=== PATIENT | male | born 1970 | race Two or more races ===

== ENCOUNTER 2018-06-20 21:37 | Emergency (ER) | payer MEDICAID ==
--- NOTE | 2018-06-20 23:58 | EDM.PDOC ---
ED HPI GENERAL MEDICAL PROBLEM - General Chief Complaint: Back Pain or Injury Stated Complaint: BACK HURTS NOT AN ACCIDENT Time Seen by Provider: 06/20/18 22:20 Source of Information: Reports: Patient History Limitations: Reports: No Limitations - History of Present Illness INITIAL COMMENTS - FREE TEXT/NARRATIVE: pt arrived with increased pain in the rt shoulder blade area and pain in the rt arm with considerable numbness. He had recently finished a medrol dospak. He also had flexeril. Onset: Other (pain definitely got alot worse today. ) Duration: Hour(s): Location: Reports: Neck, Other ( thoracic pine. ) Associated Symptoms: Reports: No Other Symptoms Left Middle Posterior Neck Pain Score (Numeric/FACES): 5 - Related Data Allergies Allergy/AdvReac Type Severity Reaction Status Date / Time hydrochlorothiazide Allergy Rash Verified 06/20/18 22:21 prochlorperazine Allergy Agitation Verified 06/20/18 22:21 [From Compazine] Home Meds: Home Meds Labetalol [Normodyne] 200 mg PO DAILY 06/20/18 [History] Lisinopril 40 mg PO DAILY 06/20/18 [History] Past Medical History HEENT History: Reports: Impaired Vision Cardiovascular History: Reports: Heart Murmur, Hypertension, Other (See Below) Other Cardiovascular History: mitral regurgitation Musculoskeletal History: Reports: Back Pain, Chronic, Neck Pain, Chronic, Other (See Below) Other Musculoskeletal History: cervical spondylosis, bulging discs plus. L5-S1 fusion Neurological History: Reports: Concussion Dermatologic History: Reports: Eczema - Past Surgical History GI Surgical History: Reports: Bariatric Procedure, Other (See Below) Other GI Surgeries/Procedures: lap band procedure 2008 Neurological Surgical History: Reports: C-Spine, Spinal Fusion Social & Family History - Tobacco Use Smoking Status *Q: Former Smoker Used Tobacco, but Quit: Yes Month/Year Tobacco Last Used: 20years - Caffeine Use Caffeine Use: Reports: Coffee - Recreational Drug Use Recreational Drug Use: No ED ROS GENERAL - Review of Systems Review Of Systems: See Below Constitutional: Reports: No Symptoms HEENT: Reports: No Symptoms Respiratory: Reports: No Symptoms Cardiovascular: Reports: No Symptoms Endocrine: Reports: No Symptoms GI/Abdominal: Reports: No Symptoms : Reports: No Symptoms Musculoskeletal: Reports: Neck Pain, Arm Pain, Other (pt has numbness in the rt arm and hand. He has just finished a medrol dospak, ) Skin: Reports: No Symptoms ED EXAM, UPPER BACK/NECK PAIN - Physical Exam Exam: See Below Text/Narrative:: pt arrived with pain in the rt [place] blade area. He has pain in his left arm and numbness in the left arm. The symptoms he is having would be at a c7 level. Exam Limited By: No Limitations General Appearance: Alert, Anxious, Moderate Distress Ears Exam: Normal TMs Nose Exam: Normal Inspection Throat/Mouth Exam: Normal Inspection Head Exam: Atraumatic Neck Exam: Non-Tender Cardiovascular/Respiratory: Regular Rate, Rhythm GI/Abdominal: Soft, Non-Tender Rectal (Males) Exam: Deferred Back Exam: Other (pt is tender by the rt shoulder blade area. He has numbness in his left hand and he has normal strength bilaterally) Extremities: Normal Inspection, Other (numbness and tingling in the rt arm. ) Neurologic: Alert, Oriented x 3 Psychiatric: Normal Affect Course - Vital Signs Last Recorded V/S: Last Vital Signs Temp 35.5 C 06/20/18 22:37 Pulse 88 06/20/18 22:37 Resp 16 06/20/18 22:37 BP 147/93 H 06/20/18 22:37 Pulse Ox 98 06/20/18 22:37 - Orders/Labs/Meds Meds: Medications Discontinued Medications Generic Name Dose Route Start Last Admin Trade Name Jimmy PRN Reason Stop Dose Admin Cyclobenzaprine HCl 10 mg 06/20/18 23:58 06/21/18 00:10 Flexeril PO 06/20/18 23:59 10 mg ONETIME ONE Administration Hydromorphone HCl 0.5 mg 06/20/18 23:58 06/21/18 00:10 Dilaudid IM 06/20/18 23:59 0.5 mg ONETIME ONE Administration - Re-Assessments/Exams Free Text/Narrative Re-Assessment/Exam: 06/21/18 01:40 pt had a thoracic spine whichdid nopt show any compression changes. He was given baclofen 10mg and dilaudid .5 and he really did have good relief. He is going to start his therapy program. Departure - Departure Time of Disposition: 01:26 Disposition: Home, Self-Care 01 Condition: Fair Clinical Impression: Cervical disc disease, Muscle spasm - Discharge Information Instructions: Muscle Cramps and Spasms, [id number], Spinal Fusion, Adult, Care After, [id number] Referrals: PCP,None [Primary Care Provider] - Forms: ED Department Discharge Care Plan Goals: moist warm packs, herbal cream for pain relieve, baclofen 10mg bid for muscle spasm, motrin 200-400 qid, percocet 5/325 q6h prn for severe pain #10, resume pt that he has used inthe past, Consider a MRI of the neck if pain does not settle down.
[2018-06-21] MEDS: HYDROmorphone 0.5 MG/0.5 ML Syringe IM ONE (00:10)
[2018-06-21] MEDS: Cyclobenzaprine 10 MG Tab PO ONE (00:10)
--- NOTE | 2018-06-21 00:44 | CRLCR ---
INDICATION: Right shoulder blade pain TECHNIQUE: Thoracic spine 3 view, 4 films COMPARISON: None FINDINGS: Bones: Alignment is normal. No fractures or significant bone lesions. Joints: Minimal anterior osteophytes without significant disc space narrowing. Soft tissues: Gastric lap band in the epigastric region in conventional position. IMPRESSION: Minimal degenerative disc disease thoracic spine. Dictated by Elton Crowell MD @ Jun 21 2018 12:42AM Signed by Dr. Elton Crowell @ Jun 21 2018 12:43AM
== END 2018-06-21 01:39 | disposition home or self-care (01) ==
LOC: JP.ED 21:37
DX: M50.90 Cervical disc disorder, unspecified, unspecified cervical region (principal); M62.838 Other muscle spasm; I10 Essential (primary) hypertension; Z88.8 Allergy status to other drugs, medicaments and biological substances; Z79.899 Other long term (current) drug therapy; Z87.891 Personal history of nicotine dependence
CPT/HCPCS: 72074; 96372; 99283; A9270; J1170

== ENCOUNTER 2018-06-27 17:06 | Emergency (ER) | payer MEDICAID ==
[2018-06-27] MEDS ORDERED: HYDROmorphone 1 MG/ML Syringe IVPUSH ONE (18:53)
[2018-06-27] MEDS ORDERED: Ondansetron 4 MG/2 ML SDV IVPUSH ONE (18:53)
[2018-06-27] MEDS ORDERED: Sodium Chloride 0.9% 10 ML Syringe FLUSH PRN (18:54)
[2018-06-27] MEDS ORDERED: Sodium Chloride 0.9% 1,000 ML IV SCH (19:00)
--- NOTE | 2018-06-27 19:01 | EDM.PDOC ---
ED HPI GENERAL MEDICAL PROBLEM - General Chief Complaint: Back Pain or Injury Stated Complaint: MEDICAL Time Seen by Provider: 06/27/18 18:57 Source of Information: Reports: Patient, RN Notes Reviewed History Limitations: Reports: No Limitations - History of Present Illness INITIAL COMMENTS - FREE TEXT/NARRATIVE: 47-year-old gentleman presents emergency department today complaint of neck pain , he states the neck pain has been ongoing for about 4 weeks does have numbness and tingling in his fingers describes digits 1-3 in the right hand digits 4 and 5 in the left hand pain is so intense he cannot turn his neck side to side I was evaluated emergency department approximately 8 days prior at which time image studies other than mild degenerative disease. He does have an appointment with her primary care provider next week to establish care Left Upper Back Pain Score (Numeric/FACES): 7 - Related Data Allergies Allergy/AdvReac Type Severity Reaction Status Date / Time hydrochlorothiazide Allergy Rash Verified 06/20/18 22:21 prochlorperazine Allergy Agitation Verified 06/20/18 22:21 [From Compazine] Home Meds: Home Meds Labetalol [Normodyne] 200 mg PO DAILY 06/20/18 [History] Lisinopril 40 mg PO DAILY 06/20/18 [History] Past Medical History HEENT History: Reports: Impaired Vision Cardiovascular History: Reports: Heart Murmur, Hypertension, Other (See Below) Other Cardiovascular History: mitral regurgitation Musculoskeletal History: Reports: Back Pain, Chronic, Neck Pain, Chronic, Other (See Below) Other Musculoskeletal History: cervical spondylosis, bulging discs plus. L5-S1 fusion Neurological History: Reports: Concussion Dermatologic History: Reports: Eczema - Infectious Disease History Infectious Disease History: Reports: Chicken Pox - Past Surgical History GI Surgical History: Reports: Bariatric Procedure, Other (See Below) Other GI Surgeries/Procedures: lap band procedure 2008 Neurological Surgical History: Reports: C-Spine, Spinal Fusion Social & Family History - Tobacco Use Smoking Status *Q: Former Smoker Used Tobacco, but Quit: Yes Month/Year Tobacco Last Used: 20 years ago - Caffeine Use Caffeine Use: Reports: Coffee ED ROS GENERAL - Review of Systems Review Of Systems: See Below Constitutional: Reports: No Symptoms HEENT: Reports: No Symptoms Respiratory: Reports: No Symptoms Cardiovascular: Reports: No Symptoms GI/Abdominal: Reports: No Symptoms : Reports: No Symptoms Musculoskeletal: Reports: Neck Pain Skin: Reports: No Symptoms Neurological: Reports: Numbness, Tingling ED EXAM, UPPER BACK/NECK PAIN - Physical Exam Exam: See Below Text/Narrative:: Examination of the neck he does describe tenderness C3 C4 region on the left side, there is no midline tenderness limited range of motion of neck secondary to pain otherwise supple no thyromegaly. Examination upper extremities on appreciate any abnormality does describe numbness and tingling digits 1 to on the right side digits 4 and 5 in the left side Tinel's is negative Exam Limited By: No Limitations General Appearance: Alert, WD/WN, No Apparent Distress Throat/Mouth Exam: Normal Inspection, Normal Lips, Normal Teeth, Normal Gums, Normal Oropharynx, Normal Voice, No Airway Compromise Head Exam: Atraumatic, Normocephalic Nexus Criteria: No: Posterior, Midline Cervical Tenderness, Evidence of Intoxication, Altered Level of Consciousness, Focal Neurological Deficit, Painful Distraction Injuries Cardiovascular/Respiratory: No Respiratory Distress Course - Vital Signs Last Recorded V/S: Last Vital Signs Temp 96.5 F 06/27/18 17:49 Pulse 83 06/27/18 17:49 Resp 17 06/27/18 17:49 BP 171/106 H 06/27/18 17:49 Pulse Ox 96 06/27/18 17:49 - Orders/Labs/Meds Orders: Active Orders 24 hr Category Date Time Status Peripheral IV Care [RC] . DIRECTED Care 06/27/18 18:56 Active Iopamidol [Isovue-370 (76%)] Med 06/27/18 19:15 Active 100 ml IV . DIRECTED Sodium Chloride 0.9% [Normal Saline] 1,000 ml Med 06/27/18 19:00 Active IV ASDIRECTED Sodium Chloride 0.9% [Normal Saline] 100 ml Med 06/27/18 19:15 Active IV ASDIRECTED Sodium Chloride 0.9% [Saline Flush] Med 06/27/18 18:54 Active 10 ml FLUSH ASDIRECTED PRN Peripheral IV Insertion Adult [OM.PC] Urgent Oth 06/27/18 18:53 Ordered Medication Orders Sodium Chloride (Normal Saline) 1,000 mls @ 500 mls/hr IV ASDIRECTED JEREMÍAS Last Admin: 06/27/18 19:31 Dose: 500 mls/hr Sodium Chloride (Normal Saline) 100 mls @ 3 mls/sec IV ASDIRECTED JEREMÍAS Last Admin: 06/27/18 19:25 Dose: 3 mls/sec Iopamidol (Isovue-370 (76%)) 100 ml IV . DIRECTED JEREMÍAS Last Admin: 06/27/18 19:25 Dose: 100 ml Sodium Chloride (Saline Flush) 10 ml FLUSH ASDIRECTED PRN PRN Reason: Keep Vein Open Meds: Medications Generic Name Dose Route Start Last Admin Trade Name Freq PRN Reason Stop Dose Admin Sodium Chloride 1,000 mls @ 500 mls/hr 06/27/18 19:00 06/27/18 19:31 Normal Saline IV 500 mls/hr ASDIRECTED JEREMÍAS Administration Sodium Chloride 100 mls @ 3 mls/sec 06/27/18 19:15 06/27/18 19:25 Normal Saline IV 3 mls/sec ASDIRECTED JEREMÍAS Administration Iopamidol 100 ml 06/27/18 19:15 06/27/18 19:25 Isovue-370 (76%) IV 100 ml . DIRECTED JEREMÍAS Administration Sodium Chloride 10 ml 06/27/18 18:54 Saline Flush FLUSH ASDIRECTED PRN Keep Vein Open Discontinued Medications Generic Name Dose Route Start Last Admin Trade Name Freq PRN Reason Stop Dose Admin Hydromorphone HCl 1 mg 06/27/18 18:53 06/27/18 19:05 Dilaudid IVPUSH 06/27/18 18:54 1 mg ONETIME ONE Administration Ondansetron HCl 4 mg 06/27/18 18:53 06/27/18 19:05 Zofran IVPUSH 06/27/18 18:54 4 mg ONETIME ONE Administration Departure - Departure Time of Disposition: 20:57 Disposition: Home, Self-Care 01 Condition: Fair Clinical Impression: Neck pain Vertebral artery stenosis Qualifiers: Laterality: bilateral Qualified Code(s): I65.03 - Occlusion and stenosis of bilateral vertebral arteries - Discharge Information Referrals: PCP,None [Primary Care Provider] - Forms: ED Department Discharge Additional Instructions: use Percocet as needed for pain control, use Flexeril as needed for muscle relaxant, please keep your follow-up appointment with primary care in 2 days, call return to the emergency department worsening of symptoms - My Orders Last 24 Hours: My Active Orders 06/27/18 18:53 Peripheral IV Insertion Adult [OM.PC] Urgent 06/27/18 18:54 Sodium Chloride 0.9% [Saline Flush] 10 ml FLUSH ASDIRECTED PRN 06/27/18 18:56 Peripheral IV Care [RC] . DIRECTED 06/27/18 19:00 Sodium Chloride 0.9% [Normal Saline] 1,000 ml IV ASDIRECTED 06/27/18 19:15 Iopamidol [Isovue-370 (76%)] 100 ml IV . DIRECTED Sodium Chloride 0.9% [Normal Saline] 100 ml IV ASDIRECTED - Assessment/Plan Last 24 Hours: My Active Orders 06/27/18 18:53 Peripheral IV Insertion Adult [OM.PC] Urgent 06/27/18 18:54 Sodium Chloride 0.9% [Saline Flush] 10 ml FLUSH ASDIRECTED PRN 06/27/18 18:56 Peripheral IV Care [RC] . DIRECTED 06/27/18 19:00 Sodium Chloride 0.9% [Normal Saline] 1,000 ml IV ASDIRECTED 06/27/18 19:15 Iopamidol [Isovue-370 (76%)] 100 ml IV . DIRECTED Sodium Chloride 0.9% [Normal Saline] 100 ml IV ASDIRECTED Plan: Assessment Acuity = acute Site and laterality = neck pain with numbness and tingling bilateral arms Etiology = unclear etiology Manifestations = [none Location of injury = Home Lab values = CT scan of the neck shows no bony abnormality however vertebral arteries do show a stenosis bilaterally Plan I did review CT scan results with him he has a follow-up appointment to establish care in 2 days prescription written for Percocet 5/325 one tablet by mouth every 6 hours when necessary total #15 and also Flexeril 1 tablet by mouth at bedtime as needed total #15 This note was dictated using [employer] voice recognition software please call with any questions on syntax or grammar.
[2018-06-27] MEDS ORDERED: Iopamidol 755 Mg/ML 100 ML Bottle IV SCH (19:15)
[2018-06-27] MEDS ORDERED: Sodium Chloride 0.9% 100 ML IV SCH (19:15)
--- NOTE | 2018-06-27 20:22 | CRLCT ---
Final Report: INDICATION: Neck pain, numbness. TECHNIQUE: High-resolution axial CT images were acquired through the neck following the rapid intravenous administration of iodinated contrast. Multiplanar MIPS of the cervical vasculature were performed as well. FINDINGS: There is minor atherosclerotic plaque at both carotid bifurcations. There is no significant stenosis. There is no evidence for dissection. The brachiocephalic vessels are not imaged directly off of the aortic arch. IMPRESSION: No evidence for significant stenosis or dissection of the carotid or vertebral arteries. Please note that all CT scans at this facility use dose modulation, iterative reconstruction, and/or weight-based dosing when appropriate to reduce radiation dose to as low as reasonably achievable. Dictated by Lennox Walters MD @ Jun 28 2018 8:10AM Signed by: Lennox Walters MD @06/28/2018 8:15:09 AM (Electronic Signature)INDICATION: Neck pain, numbness. TECHNIQUE: High-resolution axial CT images were acquired through the neck following the rapid intravenous administration of iodinated contrast. Multiplanar MIPS of the cervical vasculature were performed as well. FINDINGS: There is minor atherosclerotic plaque at both carotid bifurcations. There is no significant stenosis. There is no evidence for dissection. The brachiocephalic vessels are not imaged directly off of the aortic arch. IMPRESSION: No evidence for significant stenosis or dissection of the carotid or vertebral arteries. Please note that all CT scans at this facility use dose modulation, iterative reconstruction, and/or weight-based dosing when appropriate to reduce radiation dose to as low as reasonably achievable. Dictated by Lennox Walters MD @ Jun 28 2018 8:10AM Signed by Dr. Lennox Walters @ Jun 28 2018 8:15AM MTDD
== END 2018-06-27 21:35 | disposition home or self-care (01) ==
LOC: JP.ED 17:06
DX: I65.03 Occlusion and stenosis of bilateral vertebral arteries (principal); M54.2 Cervicalgia; Z87.891 Personal history of nicotine dependence; Z88.8 Allergy status to other drugs, medicaments and biological substances
CPT/HCPCS: 70498; 96361; 96374; 96375; 99283; J1170; J2405; J7030; Q9967

== ENCOUNTER 2018-07-09 19:13 | Emergency (ER) | payer MEDICAID ==
[2018-07-09] MEDS ORDERED: HYDROmorphone 1 MG/ML Syringe IM ONE (20:13)
--- NOTE | 2018-07-09 20:21 | EDM.PDOC ---
ED HPI GENERAL MEDICAL PROBLEM - General Chief Complaint: Back Pain or Injury Stated Complaint: BACK PAIN Time Seen by Provider: 07/09/18 19:55 Source of Information: Reports: Patient History Limitations: Reports: No Limitations - History of Present Illness INITIAL COMMENTS - FREE TEXT/NARRATIVE: 48-year-old male who has had several months of intermittent upper extremity paresthesias and neck pain which is being evaluated by his primary care provider including an MRI ordered on Wednesday of next week. He was doing well, exercising, and today had very little pain and was very active but developed bilateral numbness in his arms several hours ago and now has significant neck discomfort. The numbness of his right arm is his thumb and index finger, the left arm is the fourth and fifth fingers. He has no weakness. The pain is in the lower neck, especially the left paracervical area. Anti-inflammatories are not helping as well as they usually do. Onset: Unknown/Unsure Associated Symptoms: Reports: Other (upper extremity paresthesias). Denies: Confusion, Chest Pain, Cough, Diaphoresis, Headaches, Nausea/Vomiting, Shortness of Breath - Related Data Allergies Allergy/AdvReac Type Severity Reaction Status Date / Time hydrochlorothiazide Allergy Rash Verified 07/09/18 19:37 prochlorperazine Allergy Agitation Verified 07/09/18 19:37 [From Compazine] Home Meds: Home Meds Lisinopril 40 mg PO DAILY 06/20/18 [History] Carvedilol 07/09/18 [History] Past Medical History HEENT History: Reports: Impaired Vision Cardiovascular History: Reports: Heart Murmur, Hypertension, Other (See Below) Other Cardiovascular History: mitral regurgitation Musculoskeletal History: Reports: Back Pain, Chronic, Neck Pain, Chronic, Other (See Below) Other Musculoskeletal History: cervical spondylosis, bulging discs plus. L5-S1 fusion Neurological History: Reports: Concussion Dermatologic History: Reports: Eczema - Infectious Disease History Infectious Disease History: Reports: Chicken Pox - Past Surgical History GI Surgical History: Reports: Bariatric Procedure, Other (See Below) Other GI Surgeries/Procedures: lap band procedure 2008 Neurological Surgical History: Reports: C-Spine, Spinal Fusion Social & Family History - Tobacco Use Smoking Status *Q: Never Smoker - Caffeine Use Caffeine Use: Reports: Coffee ED ROS GENERAL - Review of Systems Review Of Systems: See Below Constitutional: Denies: Fever, Chills Respiratory: Denies: Shortness of Breath Musculoskeletal: Reports: Neck Pain Skin: Denies: Rash Neurological: Reports: Paresthesia Psychiatric: Reports: Anxiety ED EXAM, UPPER BACK/NECK PAIN - Physical Exam Exam: See Below Exam Limited By: No Limitations General Appearance: Alert, No Apparent Distress (looks uncomfortable but not acutely distressed) Eye Exam: Bilateral Eye: EOMI Head Exam: Atraumatic Neck Exam: Other (very tender to palpation along the lower para cervical muscles on the left, no significant spasm felt) Extremities: Other (strong grasp strength bilaterally, no asymmetry of strength at the shoulders or elbows) Neurologic: Oriented x 3, Sensory Deficit (some tactile deficit of the thumb and index finger on the right, the fifth finger on the left) Course - Vital Signs Last Recorded V/S: Last Vital Signs Temp 97.0 F 07/09/18 19:42 Pulse 106 H 07/09/18 19:42 Resp 14 07/09/18 19:42 BP 140/88 07/09/18 19:42 Pulse Ox 98 07/09/18 19:42 - Orders/Labs/Meds Meds: Medications Discontinued Medications Generic Name Dose Route Start Last Admin Trade Name Freq PRN Reason Stop Dose Admin Hydromorphone HCl 1 mg 07/09/18 20:13 07/09/18 20:19 Dilaudid IM 07/09/18 20:14 1 mg ONETIME ONE Administration - Re-Assessments/Exams Free Text/Narrative Re-Assessment/Exam: 07/09/18 20:17 I do not have the ability to move up his MRI, I did give him 1 mg of Dilaudid IM along with 10 hydrocodone to take along with his anti-inflammatories, encouraged him to be careful with any activity of the upper extremities or neck but he should be able to continue walking on his treadmill. If he is not improving satisfactorily should call [facility] and see if the open MRI is available before Wednesday. Departure - Departure Time of Disposition: 20:37 Disposition: Home, Self-Care 01 Clinical Impression: Neck pain Upper extremity neuropathy Qualifiers: Laterality: unspecified laterality Qualified Code(s): G56.90 - Unspecified mononeuropathy of unspecified upper limb - Discharge Information Instructions: Peripheral Neuropathy Referrals: Sabas Carlisle MD [Primary Care Provider] - Forms: ED Department Discharge Care Plan Goals: Rest tonight, increase activity as tolerated and continue anti-inflammatories for pain. Add stronger pain medication as prescribed if needed, and consider contacting [facility] if you feel you need to be evaluated sooner.
== END 2018-07-09 20:38 | disposition home or self-care (01) ==
LOC: JP.ED 19:13
DX: G56.93 Unspecified mononeuropathy of bilateral upper limbs (principal); M54.2 Cervicalgia; I10 Essential (primary) hypertension; Z88.8 Allergy status to other drugs, medicaments and biological substances; Z79.899 Other long term (current) drug therapy
CPT/HCPCS: 96372; 99283; J1170

== ENCOUNTER 2018-07-14 18:33 | Emergency (ER) | payer MEDICAID ==
--- NOTE | 2018-07-14 19:53 | EDM.PDOC ---
ED HPI GENERAL MEDICAL PROBLEM - General Chief Complaint: Neck Problem Stated Complaint: NECK/BACK PAIN, NUMBNESS RIGHT HAND Time Seen by Provider: 07/14/18 19:45 Source of Information: Reports: Patient, Family History Limitations: Reports: No Limitations - History of Present Illness INITIAL COMMENTS - FREE TEXT/NARRATIVE: 48-year-old male with known neck arthritis and radiculopathy had an MRI yesterday, and is having pain especially after physical therapy. He does not know the MRI results. 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: Baclofen, back brace Neck Pain Score (Numeric/FACES): 8 - Related Data Allergies Allergy/AdvReac Type Severity Reaction Status Date / Time hydrochlorothiazide Allergy Rash Verified 07/14/18 19:22 prochlorperazine Allergy Agitation Verified 07/14/18 19:22 [From Compazine] Home Meds: Home Meds Lisinopril 40 mg PO DAILY 06/20/18 [History] Carvedilol 12.5 mg PO BID 07/09/18 [History] Baclofen 10 mg PO TID 07/14/18 [History] Cbd Oil 8 drop TOP ASDIRECTED PRN 07/14/18 [History] Past Medical History HEENT History: Reports: Impaired Vision Cardiovascular History: Reports: Heart Murmur, Hypertension, Other (See Below) Other Cardiovascular History: mitral regurgitation Musculoskeletal History: Reports: Back Pain, Chronic, Neck Pain, Chronic, Other (See Below) Other Musculoskeletal History: cervical spondylosis, bulging discs plus. L5-S1 fusion. Recent MRI of neck 07/09/18 wears a back brace Neurological History: Reports: Concussion Dermatologic History: Reports: Eczema - Infectious Disease History Infectious Disease History: Reports: Chicken Pox - Past Surgical History GI Surgical History: Reports: Bariatric Procedure, Other (See Below) Other GI Surgeries/Procedures: lap band procedure 2008 Neurological Surgical History: Reports: C-Spine, Spinal Fusion, Other (See Below ) Other Neurological Surgeries/Procedures: Fusion L5-S1 Social & Family History - Tobacco Use Smoking Status *Q: Never Smoker Second Hand Smoke Exposure: No - Caffeine Use Caffeine Use: Reports: Coffee - Recreational Drug Use Recreational Drug Use: No ED ROS GENERAL - Review of Systems Review Of Systems: See Below Constitutional: Denies: Fever Respiratory: Denies: Shortness of Breath Cardiovascular: Denies: Chest Pain GI/Abdominal: Denies: Nausea, Vomiting Musculoskeletal: Reports: Neck Pain, Arm Pain Skin: Reports: No Symptoms Neurological: Denies: Paresthesia ED EXAM, UPPER BACK/NECK PAIN - Physical Exam Exam: See Below Exam Limited By: No Limitations General Appearance: Alert, No Apparent Distress, Other (Fairly comfortable if he lays still supine) Head Exam: Atraumatic Neck Exam: Painful Range of Motion, Paraspinous Muscle Tender (Especially in the right) Extremities: Normal Inspection Neurologic: No Motor/Sensory Deficits, Oriented x 3 Course - Vital Signs Last Recorded V/S: Last Vital Signs Temp 98.8 F 07/14/18 19:09 Pulse 96 07/14/18 19:09 Resp 14 07/14/18 19:09 BP 150/96 H 07/14/18 19:09 Pulse Ox 98 07/14/18 19:09 - Re-Assessments/Exams Free Text/Narrative Re-Assessment/Exam: 07/15/18 01:10 Reviewed his MRI, he has significant spinal stenosis of the cervical spine with arthritis changes. He was given 20 hydrocodone for extra pain control until he can discuss this with his neurosurgeon and neurologist. Departure - Departure Time of Disposition: 20:27 Disposition: Home, Self-Care 01 Clinical Impression: Degenerative cervical spinal stenosis, Neck pain, chronic - Discharge Information Instructions: Spinal Stenosis Referrals: Sabas Carlisle MD [Primary Care Provider] - Forms: ED Department Discharge Care Plan Goals: Continue your current treatment plan and medications, adding stronger pain medication as needed and directed.
== END 2018-07-14 20:28 | disposition home or self-care (01) ==
LOC: JP.ED 18:33
DX: M48.02 Spinal stenosis, cervical region (principal); I10 Essential (primary) hypertension; Z79.899 Other long term (current) drug therapy; Z88.8 Allergy status to other drugs, medicaments and biological substances
CPT/HCPCS: 99283

== ENCOUNTER 2018-07-25 17:29 | Emergency (ER) | payer MEDICAID ==
[2018-07-25] MEDS ORDERED: HYDROmorphone 1 MG/ML Syringe IM ONE (18:15)
--- NOTE | 2018-07-25 18:17 | EDM.PDOC ---
ED HPI GENERAL MEDICAL PROBLEM - General Chief Complaint: Back Pain or Injury Stated Complaint: BACK PAIN UPPER & LOWER Time Seen by Provider: 07/25/18 18:11 Source of Information: Reports: Patient, Family, RN Notes Reviewed History Limitations: Reports: No Limitations - History of Present Illness INITIAL COMMENTS - FREE TEXT/NARRATIVE: 48-year-old gentleman presents emergency department today complaint of low back pain left greater than right he does have a history of chronic back pain which he's been dealing with for several years. Has established neurosurgery is set up to have epidural injections on August 11 of this year. Denies any loss of bowel or bladder no numbness and tingling in the feet feels this exacerbation is typical for him Back Pain Score (Numeric/FACES): 7 - Related Data Allergies Allergy/AdvReac Type Severity Reaction Status Date / Time hydrochlorothiazide Allergy Rash Verified 07/14/18 19:22 prochlorperazine Allergy Agitation Verified 07/14/18 19:22 [From Compazine] Home Meds: Home Meds Lisinopril 40 mg PO DAILY 06/20/18 [History] Carvedilol 12.5 mg PO BID 07/09/18 [History] Baclofen 10 mg PO TID 07/14/18 [History] Cbd Oil 8 drop TOP ASDIRECTED PRN 07/14/18 [History] Past Medical History HEENT History: Reports: Impaired Vision Cardiovascular History: Reports: Heart Murmur, Hypertension, Other (See Below) Other Cardiovascular History: mitral regurgitation Musculoskeletal History: Reports: Back Pain, Chronic, Neck Pain, Chronic, Other (See Below) Other Musculoskeletal History: cervical spondylosis, bulging discs plus. L5-S1 fusion. Recent MRI of neck 07/09/18 wears a back brace Neurological History: Reports: Concussion Dermatologic History: Reports: Eczema - Infectious Disease History Infectious Disease History: Reports: Chicken Pox - Past Surgical History GI Surgical History: Reports: Bariatric Procedure, Other (See Below) Other GI Surgeries/Procedures: lap band procedure 2008 Neurological Surgical History: Reports: C-Spine, Spinal Fusion, Other (See Below ) Other Neurological Surgeries/Procedures: Fusion L5-S1 Social & Family History - Tobacco Use Smoking Status *Q: Never Smoker - Caffeine Use Caffeine Use: Reports: Coffee, Soda - Recreational Drug Use Recreational Drug Use: No ED ROS GENERAL - Review of Systems Review Of Systems: See Below Constitutional: Reports: No Symptoms Respiratory: Reports: No Symptoms Cardiovascular: Reports: No Symptoms GI/Abdominal: Reports: No Symptoms Musculoskeletal: Reports: Back Pain Neurological: Reports: No Symptoms ED EXAM,LOWER BACK PAIN/INJURY - Physical Exam Exam: See Below Exam Limited By: No Limitations General Appearance: Alert, WD/WN, No Apparent Distress Respiratory/Chest: No Respiratory Distress Back Exam: Normal Inspection, Decreased Range of Motion, Muscle Spasm, Paraspinal Tenderness. No: CVA Tenderness (R), CVA Tenderness (L), Vertebral Tenderness Neurological: No: Straight Leg Raise (L), Straight Leg Raise (R) Course - Vital Signs Last Recorded V/S: Last Vital Signs Temp 97.5 F 07/25/18 17:59 Pulse 94 07/25/18 17:59 Resp 16 07/25/18 17:59 BP 180/89 H 07/25/18 17:59 Pulse Ox 96 07/25/18 17:59 - Orders/Labs/Meds Meds: Medications Discontinued Medications Generic Name Dose Route Start Last Admin Trade Name Jimmy PRN Reason Stop Dose Admin Hydromorphone HCl 1 mg 07/25/18 18:15 07/25/18 18:40 Dilaudid IM 07/25/18 18:16 1 mg ONETIME ONE Administration Departure - Departure Time of Disposition: 19:19 Disposition: Home, Self-Care 01 Condition: Fair Clinical Impression: Chronic low back pain without sciatica Qualifiers: Back pain laterality: left Qualified Code(s): M54.5 - Low back pain; G89.29 - Other chronic pain - Discharge Information Instructions: Chronic Back Pain, [id number] Referrals: Sabas Carlisle MD [Primary Care Provider] - Forms: ED Department Discharge Additional Instructions: Continue to use ibuprofen as needed for baseline pain control, use Percocet as needed for breakthrough pain, please follow-up with your primary care provider in the next 2-3 days for reevaluation if not better call return to the emergency department worsening of symptoms - Assessment/Plan Plan: Assessment Acuity = acute on chronic Site and laterality = exacerbation of low back pain Etiology = unclear etiology Manifestations = none Location of injury = Home Lab values = none Plan Provided 1 mg Dilaudid IM then prescription written for Percocet 5/325 one tab by mouth every 6 hours when necessary total #6, he'll follow up with his primary care in next 2-3 days for reevaluation if not better This note was dictated using [employer] voice recognition software please call with any questions on syntax or grammar.
== END 2018-07-25 19:30 | disposition home or self-care (01) ==
LOC: JP.ED 17:29
DX: G89.29 Other chronic pain (principal); M54.5 Low back pain; I10 Essential (primary) hypertension; Z98.84 Bariatric surgery status; Z79.899 Other long term (current) drug therapy; Z88.8 Allergy status to other drugs, medicaments and biological substances
CPT/HCPCS: 96372; 99283; J1170

== ENCOUNTER 2018-08-28 13:44 | Emergency (ER) | payer MEDICAID ==
[2018-08-28] MEDS ORDERED: HYDROmorphone 1 MG/ML Syringe IM ONE (15:54)
[2018-08-28] MEDS ORDERED: Cyclobenzaprine 10 MG Tab PO ONE (15:55)
--- NOTE | 2018-08-28 15:55 | EDM.PDOC ---
ED HPI GENERAL MEDICAL PROBLEM - General Chief Complaint: Neck Problem Stated Complaint: NECK PAIN, RIGHT ARM NUMBNESS AND PAIN Time Seen by Provider: 08/28/18 14:38 Source of Information: Reports: Patient History Limitations: Reports: No Limitations - History of Present Illness INITIAL COMMENTS - FREE TEXT/NARRATIVE: 48 yo male with chronic neck pain presents to ER to with severe neck pain. He has traveled to [place] 2 days ago and helped his mother with some moving. exacerbation of neck pain. He had previously been doing very well continues with physical therapy. Denies recent traumatic event. Right Neck Pain Score (Numeric/FACES): 7 - Related Data Allergies Allergy/AdvReac Type Severity Reaction Status Date / Time hydrochlorothiazide Allergy Rash Verified 08/28/18 14:42 prochlorperazine Allergy Agitation Verified 08/28/18 14:42 [From Compazine] Home Meds: Home Meds Lisinopril 40 mg PO DAILY 06/20/18 [History] Carvedilol 12.5 mg PO BID 07/09/18 [History] Baclofen 5 mg PO BID 07/14/18 [History] Cbd Oil 8 drop TOP ASDIRECTED PRN 07/14/18 [History] Past Medical History HEENT History: Reports: Impaired Vision Cardiovascular History: Reports: Heart Murmur, Hypertension, Other (See Below) Other Cardiovascular History: mitral regurgitation Musculoskeletal History: Reports: Back Pain, Chronic, Neck Pain, Chronic, Other (See Below) Other Musculoskeletal History: cervical spondylosis, bulging discs plus. L5-S1 fusion. Recent MRI of neck 07/09/18 wears a back brace Neurological History: Reports: Concussion Dermatologic History: Reports: Eczema - Infectious Disease History Infectious Disease History: Reports: Chicken Pox - Past Surgical History GI Surgical History: Reports: Bariatric Procedure, Other (See Below) Other GI Surgeries/Procedures: lap band procedure 2008 Neurological Surgical History: Reports: C-Spine, Spinal Fusion, Other (See Below ) Other Neurological Surgeries/Procedures: Fusion L5-S1 Social & Family History - Tobacco Use Smoking Status *Q: Former Smoker Used Tobacco, but Quit: Yes Month/Year Tobacco Last Used: 20 years - Caffeine Use Caffeine Use: Reports: Coffee - Recreational Drug Use Recreational Drug Use: No ED ROS GENERAL - Review of Systems Review Of Systems: See Below Constitutional: Denies: Fever, Chills Respiratory: Denies: Shortness of Breath, Wheezing Cardiovascular: Denies: Chest Pain - Physical Exam Exam: See Below Exam Limited By: No Limitations General Appearance: Alert, WD/WN, Mild Distress Neck: Supple, Tender Lateral, Tender Midline. No: Lymphadenopathy (R), Lymphadenopathy (L) Respiratory/Chest: No Respiratory Distress, Lungs Clear, Normal Breath Sounds, No Accessory Muscle Use, Chest Non-Tender. No: Crackles, Rhonchi, Wheezing Cardiovascular: Regular Rate, Rhythm, Systolic Murmur Back Exam: Muscle Spasm, Paraspinal Tenderness Psychiatric: Normal Affect, Normal Mood Skin Exam: Warm, Dry, Intact Course - Vital Signs Last Recorded V/S: Last Vital Signs Temp 36.1 C 08/28/18 14:37 Pulse 80 08/28/18 14:37 Resp 16 08/28/18 14:37 BP 148/107 H 08/28/18 14:37 Pulse Ox 94 L 08/28/18 14:37 - Orders/Labs/Meds Meds: Medications Discontinued Medications Generic Name Dose Route Start Last Admin Trade Name Jimmy PRN Reason Stop Dose Admin Cyclobenzaprine HCl 10 mg 08/28/18 15:55 08/28/18 16:10 Flexeril PO 08/28/18 15:56 10 mg ONETIME ONE Administration Hydromorphone HCl 1 mg 08/28/18 15:54 08/28/18 16:10 Dilaudid IM 08/28/18 15:55 1 mg ONETIME ONE Administration - Re-Assessments/Exams Free Text/Narrative Re-Assessment/Exam: 08/28/18 16:51 pain improved but did not resolve after medication administration Departure - Departure Time of Disposition: 16:33 Disposition: Home, Self-Care 01 Condition: Good Clinical Impression: Cervicalgia - Discharge Information *PRESCRIPTION DRUG MONITORING PROGRAM REVIEWED*: Not Applicable *COPY OF PRESCRIPTION DRUG MONITORING REPORT IN PATIENT LONI: Not Applicable Instructions: Cervical Sprain, [id number] Referrals: Sabas Carlisle MD [Primary Care Provider] - Forms: ED Department Discharge Additional Instructions: Percocet as needed for severe pain alternate between ice and heat continue with physical therapy
== END 2018-08-28 17:08 | disposition home or self-care (01) ==
LOC: JP.ED 13:44
DX: M54.2 Cervicalgia (principal); I10 Essential (primary) hypertension; Z87.891 Personal history of nicotine dependence; Z79.899 Other long term (current) drug therapy; Z88.8 Allergy status to other drugs, medicaments and biological substances
CPT/HCPCS: 96372; 99283; A9270; J1170

== ENCOUNTER 2018-09-05 16:52 | Emergency (ER) | payer MEDICAID ==
[2018-09-05] MEDS ORDERED: Ketorolac 60 MG/2 ML SDV IM ONE (18:37)
[2018-09-05] MEDS ORDERED: Acetaminophen/oxyCODONE 325-5 MG Tab PO ONE (18:38)
--- NOTE | 2018-09-05 18:40 | EDM.PDOC ---
ED HPI GENERAL MEDICAL PROBLEM - General Chief Complaint: Neck Problem Stated Complaint: BACK HURTS NOT AN ACCIDENT Time Seen by Provider: 09/05/18 18:40 Source of Information: Reports: Patient History Limitations: Reports: No Limitations - History of Present Illness INITIAL COMMENTS - FREE TEXT/NARRATIVE: pt arrived with increased pain in the post cervical area and numbness in all limbs . he had a Mri in July which was done in [place] that showed a multi level disc problem. Onset: Gradual, Other (pt worked on a retaining wall and did some shoveling today. He also did some gardening. He was doing ok but he then developed numbness in the extremities-- all of them. Normally when he gets numbness it is one the left. ) Duration: Hour(s): Location: Reports: Neck Associated Symptoms: Reports: No Other Symptoms Neck Pain Score (Numeric/FACES): 8 - Related Data Allergies Allergy/AdvReac Type Severity Reaction Status Date / Time hydrochlorothiazide Allergy Rash Verified 09/05/18 17:43 prochlorperazine Allergy Agitation Verified 09/05/18 17:43 [From Compazine] Home Meds: Home Meds Lisinopril 40 mg PO DAILY 06/20/18 [History] Carvedilol 12.5 mg PO BID 07/09/18 [History] Baclofen 2.5 mg PO BID 07/14/18 [History] Cbd Oil 8 drop TOP ASDIRECTED PRN 07/14/18 [History] Past Medical History HEENT History: Reports: Impaired Vision Cardiovascular History: Reports: Heart Murmur, Hypertension, Other (See Below) Other Cardiovascular History: mitral regurgitation Musculoskeletal History: Reports: Back Pain, Chronic, Neck Pain, Chronic, Other (See Below) Other Musculoskeletal History: cervical spondylosis, bulging discs plus. L5-S1 fusion. Recent MRI of neck 07/09/18 wears a back brace Neurological History: Reports: Concussion Dermatologic History: Reports: Eczema - Infectious Disease History Infectious Disease History: Reports: Chicken Pox - Past Surgical History GI Surgical History: Reports: Bariatric Procedure, Other (See Below) Other GI Surgeries/Procedures: lap band procedure 2008 Neurological Surgical History: Reports: C-Spine, Spinal Fusion, Other (See Below ) Other Neurological Surgeries/Procedures: Fusion L5-S1 Social & Family History - Tobacco Use Smoking Status *Q: Never Smoker Second Hand Smoke Exposure: No - Caffeine Use Caffeine Use: Reports: Coffee - Recreational Drug Use Recreational Drug Use: No ED ROS GENERAL - Review of Systems Review Of Systems: See Below Constitutional: Reports: No Symptoms HEENT: Reports: No Symptoms Respiratory: Reports: No Symptoms Cardiovascular: Reports: No Symptoms Endocrine: Reports: No Symptoms GI/Abdominal: Reports: No Symptoms : Reports: No Symptoms Musculoskeletal: Reports: Other (pain in the post cervical area. ) Skin: Reports: No Symptoms Neurological: Reports: Other (numbness in all 4 limbs. ) Psychiatric: Reports: No Symptoms ED EXAM, UPPER BACK/NECK PAIN - Physical Exam Exam: See Below Text/Narrative:: pt arrived with increased pain in the post cervical area with numbness in all extremities. he had over worked today and it was after that that he began to have the numbness and the pain increase. Exam Limited By: No Limitations General Appearance: Alert, Severe Distress, Other (pupils equal and reactive. ) Ears Exam: Normal TMs Nose Exam: Normal Inspection Throat/Mouth Exam: Normal Inspection Head Exam: Atraumatic Neck Exam: Other (pt has alot of oost tightness and tenderness over c6-c7. ) Cardiovascular/Respiratory: Regular Rate, Rhythm GI/Abdominal: Soft, Non-Tender Course - Vital Signs Last Recorded V/S: Last Vital Signs Temp 36.4 C 09/05/18 17:43 Pulse 95 09/05/18 19:35 Resp 20 09/05/18 19:35 BP 155/93 H 09/05/18 19:35 Pulse Ox 98 09/05/18 19:35 - Orders/Labs/Meds Meds: Medications Discontinued Medications Generic Name Dose Route Start Last Admin Trade Name Jimmy PRN Reason Stop Dose Admin Hydromorphone HCl 0.5 mg 09/05/18 19:18 09/05/18 19:32 Dilaudid IM 09/05/18 19:19 0.5 mg ONETIME ONE Administration Ketorolac Tromethamine 60 mg 09/05/18 18:37 09/05/18 18:52 Toradol IM 09/05/18 18:38 60 mg ONETIME ONE Administration Oxycodone/Acetaminophen 1 tab 09/05/18 18:38 09/05/18 18:50 Percocet 325-5 Mg PO 09/05/18 18:39 1 tab ONETIME ONE Administration - Re-Assessments/Exams Free Text/Narrative Re-Assessment/Exam: 09/05/18 20:09 pt was given dilaudid .5, torodol 60mg im, and percocet 5/325. At this point he is quite comfortable. He works with a therapist and does therapy at home. Departure - Departure Time of Disposition: 19:59 Disposition: Home, Self-Care 01 Condition: Fair Clinical Impression: Cervical disc disease, Numbness and tingling of both legs, Numbness and tingling in both hands - Discharge Information Referrals: Sabas Carlisle MD [Primary Care Provider] - Forms: ED Department Discharge Care Plan Goals: avoid heavy lifting, keep appt with Dr Rodriguez on the , Resume baclofen 10mg tid, medrol dospak, norco 5/325 q6h prn for pain
[2018-09-05] MEDS ORDERED: HYDROmorphone 0.5 MG/0.5 ML Syringe IM ONE (19:18)
== END 2018-09-05 20:31 | disposition home or self-care (01) ==
LOC: JP.ED 16:52
DX: M50.30 Other cervical disc degeneration, unspecified cervical region (principal); R20.0 Anesthesia of skin; I10 Essential (primary) hypertension; Z79.899 Other long term (current) drug therapy; Z88.8 Allergy status to other drugs, medicaments and biological substances
CPT/HCPCS: 96372; 99283; A9270; J1170; J1885

== ENCOUNTER 2018-10-03 19:24 | Emergency (ER) | payer MEDICAID ==
[2018-10-03] MEDS ORDERED: HYDROmorphone 1 MG/ML Syringe IM ONE (19:54)
--- NOTE | 2018-10-03 20:02 | EDM.PDOC ---
ED HPI GENERAL MEDICAL PROBLEM - General Chief Complaint: Neck Problem Stated Complaint: NECK HURTS CHRONIC Time Seen by Provider: 10/03/18 19:45 Source of Information: Reports: Patient, Old Records History Limitations: Reports: No Limitations - History of Present Illness INITIAL COMMENTS - FREE TEXT/NARRATIVE: 48 yo male here with an exacerbation of his chronic neck pain. Attributes this to doing quite a bit of yard work around his house today due to the fact that the weather is cooler with lower humidity. Has some numbness to the L arm. Has been going to PT in [place] for his neck. There has been discussion about referring him to a neck surgeon, he has [facility]. Has been to the ER before for this. 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 Onset: Today Onset Date: 10/03/18 Onset Time: 17:00 Duration: Hour(s):, Constant Location: Reports: Neck Quality: Reports: Other (tightness) Severity: Moderate Improves with: Reports: Rest Worsens with: Reports: Movement Context: Reports: Other (See HPI) Associated Symptoms: Reports: No Other Symptoms Treatments CONTROL INSPECTOR: Reports: NSAIDS (ibuprofen) neck Pain Score (Numeric/FACES): 7 - Related Data Allergies Allergy/AdvReac Type Severity Reaction Status Date / Time hydrochlorothiazide Allergy Rash Verified 10/03/18 19:35 prochlorperazine Allergy Agitation Verified 10/03/18 19:35 [From Compazine] Home Meds: Home Meds Lisinopril 40 mg PO DAILY 06/20/18 [History] Carvedilol 12.5 mg PO BID 07/09/18 [History] Cbd Oil 8 drop TOP ASDIRECTED PRN 07/14/18 [History] Acetaminophen [Tylenol] 650 mg PO BID 10/03/18 [History] Ibuprofen [Motrin] 400 mg PO TID 10/03/18 [History] Past Medical History HEENT History: Reports: Impaired Vision Cardiovascular History: Reports: Heart Murmur, Hypertension, Other (See Below) Other Cardiovascular History: mitral regurgitation Musculoskeletal History: Reports: Back Pain, Chronic, Neck Pain, Chronic, Other (See Below) Other Musculoskeletal History: cervical spondylosis, bulging discs plus. L5-S1 fusion. Recent MRI of neck 07/09/18 wears a back brace Neurological History: Reports: Concussion Dermatologic History: Reports: Eczema - Infectious Disease History Infectious Disease History: Reports: Chicken Pox - Past Surgical History GI Surgical History: Reports: Bariatric Procedure, Other (See Below) Other GI Surgeries/Procedures: lap band procedure 2008 Neurological Surgical History: Reports: C-Spine, Spinal Fusion, Other (See Below ) Other Neurological Surgeries/Procedures: Fusion L5-S1 Social & Family History - Tobacco Use Smoking Status *Q: Never Smoker - Caffeine Use Caffeine Use: Reports: Coffee - Recreational Drug Use Recreational Drug Use: No ED ROS GENERAL - Review of Systems Review Of Systems: See Below Constitutional: Reports: No Symptoms HEENT: Reports: No Symptoms Respiratory: Reports: No Symptoms Cardiovascular: Reports: No Symptoms GI/Abdominal: Reports: No Symptoms : Reports: No Symptoms Musculoskeletal: Reports: No Symptoms Skin: Reports: No Symptoms Neurological: Reports: Numbness (intermittent L hand) Psychiatric: Reports: No Symptoms ED EXAM, UPPER BACK/NECK PAIN - Physical Exam Exam: See Below Exam Limited By: No Limitations General Appearance: Alert, WD/WN, No Apparent Distress, Obese Eye Exam: Bilateral Eye: Normal Inspection Ears Exam: Normal External Exam, Normal Canal, Hearing Grossly Normal Nose Exam: Normal Inspection, No Blood Throat/Mouth Exam: Normal Inspection, Normal Lips, Normal Oropharynx, Normal Voice, No Airway Compromise Head Exam: Atraumatic, Normocephalic Neck Exam: Limited Range of Motion, Muscle Spasm, Painful Range of Motion, Stiff Neck, Tenderness (neck and upper back L>R) Extremities: Normal Inspection, Normal Range of Motion, Non-Tender, No Pedal Edema 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 II-XII nml As Tested, No Motor/Sensory Deficits, Alert, Normal Mood/Affect, Oriented x 3 Psychiatric: Normal Affect, Normal Mood Skin Exam: Normal Color, Warm/Dry Course - Vital Signs Last Recorded V/S: Last Vital Signs Temp 37.2 C 10/03/18 19:37 Pulse 97 10/03/18 19:37 Resp 18 10/03/18 19:37 BP 187/121 H 10/03/18 19:37 Pulse Ox 96 10/03/18 19:37 - Orders/Labs/Meds Meds: Medications Discontinued Medications Generic Name Dose Route Start Last Admin Trade Name Freq PRN Reason Stop Dose Admin Hydromorphone HCl 1 mg 10/03/18 19:54 Dilaudid IM 10/03/18 19:55 ONETIME ONE Departure - Departure Time of Disposition: 20:15 Disposition: Home, Self-Care 01 Condition: Fair Clinical Impression: Neck pain, chronic - Discharge Information *PRESCRIPTION DRUG MONITORING PROGRAM REVIEWED*: No *COPY OF PRESCRIPTION DRUG MONITORING REPORT IN PATIENT LONI: No Referrals: Sabas Carlisle MD [Primary Care Provider] - Additional Instructions: F/U with your provider DEJA to further address your neck pain issues/needs. No driving tonight. May continue your ibuprofen, add Flexeril and Percocet as directed for added relief.
== END 2018-10-03 20:38 | disposition home or self-care (01) ==
LOC: JP.ED 19:24
DX: G89.29 Other chronic pain (principal); M54.2 Cervicalgia; I10 Essential (primary) hypertension; Z88.8 Allergy status to other drugs, medicaments and biological substances; Z79.899 Other long term (current) drug therapy
CPT/HCPCS: 96372; 99283; J1170

== ENCOUNTER 2018-10-10 20:14 | Emergency (ER) | payer MEDICAID ==
[2018-10-10] MEDS ORDERED: HYDROmorphone 1 MG/ML Syringe IM ONE (20:49)
--- NOTE | 2018-10-10 20:55 | EDM.PDOC ---
ED HPI GENERAL MEDICAL PROBLEM - General Chief Complaint: Neck Problem Stated Complaint: NECK PAIN Time Seen by Provider: 10/10/18 20:21 Source of Information: Reports: Patient History Limitations: Reports: No Limitations - History of Present Illness INITIAL COMMENTS - FREE TEXT/NARRATIVE: Chronic pain States he "over did it", having severe pain; no new symptoms. Has the tingling in the left hand, 4th and 5th, and right hand, first and second. Limited ROM to his neck; sitting in a stiff position. No loss of bowel or bladder control He is doing PT which usually helps Review of PATROL AGENT shows and increase in the number or scripts for pain medicine. Last fill 10/03 for 10 tabs of Oxycodone. Has a total of 7 different fills since June. Discussed with him that he needs to FU with PCP because chronic pain isn't a ER issue and he needs to have a plan for when he has breakthrough pain. 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 Onset: Gradual Location: Reports: Neck Quality: Reports: Ache, Sharp, Stabbing Severity: Severe Improves with: Reports: None Worsens with: Reports: None Neck Pain Score (Numeric/FACES): 7 - Related Data Allergies Allergy/AdvReac Type Severity Reaction Status Date / Time hydrochlorothiazide Allergy Rash Verified 10/10/18 20:40 prochlorperazine Allergy Agitation Verified 10/10/18 20:40 [From Compazine] Home Meds: Home Meds Lisinopril 40 mg PO DAILY 06/20/18 [History] Carvedilol 12.5 mg PO BID 07/09/18 [History] Cbd Oil 8 drop TOP ASDIRECTED PRN 07/14/18 [History] Acetaminophen [Tylenol] 650 mg PO BID 10/03/18 [History] Ibuprofen [Motrin] 400 mg PO TID 10/03/18 [History] Cyclobenzaprine [Flexeril] 10 mg PO BEDTIME #15 tab 10/10/18 [Rx] Past Medical History HEENT History: Reports: Impaired Vision Cardiovascular History: Reports: Heart Murmur, Hypertension, Other (See Below) Other Cardiovascular History: mitral regurgitation Musculoskeletal History: Reports: Back Pain, Chronic, Neck Pain, Chronic, Other (See Below) Other Musculoskeletal History: cervical spondylosis, bulging discs plus. L5-S1 fusion. Recent MRI of neck 07/09/18 wears a back brace Neurological History: Reports: Concussion Dermatologic History: Reports: Eczema - Infectious Disease History Infectious Disease History: Reports: Chicken Pox - Past Surgical History GI Surgical History: Reports: Bariatric Procedure, Other (See Below) Other GI Surgeries/Procedures: lap band procedure 2008 Neurological Surgical History: Reports: C-Spine, Spinal Fusion, Other (See Below ) Other Neurological Surgeries/Procedures: Fusion L5-S1 Social & Family History - Tobacco Use Smoking Status *Q: Never Smoker - Caffeine Use Caffeine Use: Reports: Coffee - Recreational Drug Use Recreational Drug Use: No ED ROS GENERAL - Review of Systems Review Of Systems: See Below Constitutional: Reports: No Symptoms HEENT: Reports: No Symptoms Respiratory: Reports: No Symptoms Cardiovascular: Reports: No Symptoms Endocrine: Reports: No Symptoms GI/Abdominal: Reports: No Symptoms Musculoskeletal: Reports: Neck Pain Skin: Reports: No Symptoms Neurological: Reports: Numbness (to hands/fingers), Tingling (left hand, 4th and 5th finger, right hand, 1st and second finger.), Weakness (upper extremities ) Psychiatric: Reports: No Symptoms ED EXAM, GENERAL - Physical Exam Exam: See Below Exam Limited By: No Limitations General Appearance: Alert, WD/WN, No Apparent Distress Throat/Mouth: Normal Inspection, Normal Oropharynx Head: Atraumatic, Normocephalic Neck: Normal Inspection, Supple, Tender Lateral, Tender Midline, Other ( decreased rom, pain with movement to either side.) Respiratory/Chest: No Respiratory Distress Cardiovascular: Regular Rate, Rhythm Extremities: Normal Inspection Neurological: Alert, Oriented, CN II-XII Intact, Normal Cognition, Normal Gait Psychiatric: Normal Affect, Normal Mood Skin Exam: Warm, Dry, Intact Course - Vital Signs Last Recorded V/S: Last Vital Signs Temp 97.6 F 10/10/18 20:39 Pulse 83 10/10/18 20:39 Resp 16 10/10/18 20:39 BP 191/128 H 10/10/18 20:39 Pulse Ox 96 10/10/18 20:39 - Orders/Labs/Meds Meds: Medications Discontinued Medications Generic Name Dose Route Start Last Admin Trade Name Freq PRN Reason Stop Dose Admin Hydromorphone HCl 1 mg 10/10/18 20:49 10/10/18 21:00 Dilaudid IM 10/10/18 20:50 1 mg ONETIME ONE Administration - Re-Assessments/Exams Free Text/Narrative Re-Assessment/Exam: 10/10/18 21:06 His blood pressure is quite elevated however he is sitting erect on a table with his left hand wedging him up, in a stiff position. Recheck of blood pressure in a relaxed position is much better at 156/99 10/10/18 21:16 Departure - Departure Time of Disposition: 21:19 Disposition: Home, Self-Care 01 Condition: Fair Clinical Impression: Chronic neck pain - Discharge Information *PRESCRIPTION DRUG MONITORING PROGRAM REVIEWED*: Yes *COPY OF PRESCRIPTION DRUG MONITORING REPORT IN PATIENT LONI: No Prescriptions: Cyclobenzaprine [Flexeril] 10 mg PO BEDTIME #15 tab Instructions: Pain Medicine Instructions Referrals: PCP,None [Primary Care Provider] - Forms: ED Department Discharge Additional Instructions: Please be sure to follow up with your doctor Do not drink or drive while taking pain medications Follow up with your doctor Call with questions Return with worsening of symptoms. - Problem List & Annotations (1) Neck pain, chronic SNOMED Code(s): 8598845630932 Code(s): M54.2 - CERVICALGIA; G89.29 - OTHER CHRONIC PAIN Status: Chronic Priority: Low Current Visit: Yes
== END 2018-10-10 21:37 | disposition home or self-care (01) ==
LOC: JP.ED 20:14
DX: G89.29 Other chronic pain (principal); M54.2 Cervicalgia; I10 Essential (primary) hypertension; Z88.8 Allergy status to other drugs, medicaments and biological substances; Z79.899 Other long term (current) drug therapy
CPT/HCPCS: 96372; 99283; J1170

== ENCOUNTER 2018-11-24 17:32 | Emergency (ER) | payer MEDICAID ==
[2018-11-24] MEDS ORDERED: HYDROmorphone 1 MG/ML Syringe IM ONE (19:49)
--- NOTE | 2018-11-24 20:02 | EDM.PDOC ---
ED HPI GENERAL MEDICAL PROBLEM - General Chief Complaint: Back Pain or Injury Stated Complaint: UPPER/LOW BACK PAIN, NECK PAIN Time Seen by Provider: 11/24/18 19:45 Source of Information: Reports: Patient History Limitations: Reports: No Limitations - History of Present Illness INITIAL COMMENTS - FREE TEXT/NARRATIVE: 48-year-old male with chronic neck problems, has been improving with physical therapy but strained his neck lifting a box and now has intense pain again. He does get a flare similar to this every month or so. He is discussing possible treatments with his primary providers. Onset: Sudden Duration: Day(s): (Increased pain for the last 2 days) Associated Symptoms: Reports: Other (Occasional paresthesias in his left arm, none currently) - Related Data Allergies Allergy/AdvReac Type Severity Reaction Status Date / Time hydrochlorothiazide Allergy Rash Verified 11/24/18 19:18 prochlorperazine Allergy Agitation Verified 11/24/18 19:18 [From Compazine] Home Meds: Home Meds Lisinopril 40 mg PO DAILY 06/20/18 [History] Carvedilol 12.5 mg PO BID 07/09/18 [History] Cbd Oil 8 drop TOP ASDIRECTED PRN 07/14/18 [History] Acetaminophen [Tylenol] 650 mg PO BID 10/03/18 [History] Ibuprofen [Motrin] 400 mg PO TID 10/03/18 [History] Cholecalciferol (Vitamin D3) [Vitamin D3] 11/24/18 [History] Testosterone [Androderm 4 MG/Day] 11/24/18 [History] Past Medical History HEENT History: Reports: Impaired Vision Cardiovascular History: Reports: Heart Murmur, Hypertension, Other (See Below) Other Cardiovascular History: mitral regurgitation Musculoskeletal History: Reports: Back Pain, Chronic, Neck Pain, Chronic, Other (See Below) Other Musculoskeletal History: cervical spondylosis, bulging discs plus. L5-S1 fusion. Recent MRI of neck 07/09/18 wears a back brace Neurological History: Reports: Concussion Dermatologic History: Reports: Eczema - Infectious Disease History Infectious Disease History: Reports: Chicken Pox - Past Surgical History GI Surgical History: Reports: Bariatric Procedure, Other (See Below) Other GI Surgeries/Procedures: lap band procedure 2008 Neurological Surgical History: Reports: C-Spine, Spinal Fusion, Other (See Below ) Other Neurological Surgeries/Procedures: Fusion L5-S1 Social & Family History - Tobacco Use Smoking Status *Q: Never Smoker - Caffeine Use Caffeine Use: Reports: Coffee ED ROS GENERAL - Review of Systems Review Of Systems: See Below Constitutional: Denies: Fever, Chills HEENT: Denies: Vision Change Respiratory: Denies: Shortness of Breath Cardiovascular: Denies: Chest Pain GI/Abdominal: Denies: Abdominal Pain, Nausea, Vomiting Skin: Reports: No Symptoms Neurological: Reports: Paresthesia (Intermittent paresthesias of the left hand) Psychiatric: Reports: No Symptoms ED EXAM, UPPER BACK/NECK PAIN - Physical Exam Exam: See Below Exam Limited By: No Limitations General Appearance: Alert, No Apparent Distress (Looks uncomfortable but not distressed) Head Exam: Atraumatic Neck Exam: Other (Patient is holding his neck stiffly to avoid range of motion. There is increased discomfort with rotation and palpation of the paracervical muscles. 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 He has not had any in the last month. He was given 10 oxycodone and 15 Flexeril for symptom control over the next 3-5 days along with 1 mg IM of Dilaudid. He is going to sleep and rest for the next few days and increase activity as tolerated, rechecking with primary care next week if not improving satisfactorily. Departure - Departure Time of Disposition: 20:00 Disposition: Home, Self-Care 01 Condition: Good Clinical Impression: Neck pain - Discharge Information Instructions: Cervical Sprain, [id number] Referrals: Sabas Carlisle MD [Primary Care Provider] - Forms: ED Department Discharge Care Plan Goals: Rest the next 1-2 days and take medications as directed. Recheck with your primary provider next week if not improving satisfactorily.
== END 2018-11-24 20:00 | disposition home or self-care (01) ==
LOC: JP.ED 17:32
DX: M54.2 Cervicalgia (principal); I10 Essential (primary) hypertension; Z79.899 Other long term (current) drug therapy; Z88.8 Allergy status to other drugs, medicaments and biological substances
CPT/HCPCS: 96372; 99283; J1170

== ENCOUNTER 2018-12-16 18:35 | Emergency (ER) | payer MEDICAID ==
[2018-12-16] MEDS ORDERED: Acetaminophen/oxyCODONE 325-5 MG Tab PO ONE (20:59)
[2018-12-16] MEDS ORDERED: Cyclobenzaprine 10 MG Tab PO ONE (20:59)
[2018-12-16] MEDS ORDERED: Ketorolac 60 MG/2 ML SDV IM ONE (20:59)
--- NOTE | 2018-12-16 21:26 | EDM.PDOC ---
ED HPI GENERAL MEDICAL PROBLEM - General Chief Complaint: General Stated Complaint: NECK PAIN Time Seen by Provider: 12/16/18 20:00 Source of Information: Reports: Patient History Limitations: Reports: No Limitations - History of Present Illness INITIAL COMMENTS - FREE TEXT/NARRATIVE: 48 yo male presents to the ER with flare of his chronic cervical pain. Pt has been participating in physical therapy. earlier this week pt was very active getting his house ready for winter. increase in pain and spasm in the left side of his left and the right side of his upper back. denies new injury. the pain is radiating down left arm Left Neck Pain Score (Numeric/FACES): 7 - Related Data Allergies Allergy/AdvReac Type Severity Reaction Status Date / Time hydrochlorothiazide Allergy Rash Verified 11/24/18 19:18 prochlorperazine Allergy Agitation Verified 11/24/18 19:18 [From Compazine] Home Meds: Home Meds Lisinopril 40 mg PO DAILY 06/20/18 [History] Carvedilol 12.5 mg PO BID 07/09/18 [History] Cbd Oil 8 drop TOP ASDIRECTED PRN 07/14/18 [History] Acetaminophen [Tylenol] 650 mg PO BID PRN 10/03/18 [History] Ibuprofen [Motrin] 400 mg PO TID PRN 10/03/18 [History] Cholecalciferol (Vitamin D3) [Vitamin D3] 5,000 units PO DAILY 11/24/18 [History ] Testosterone [Androderm 4 MG/Day] 4 mg TOP DAILY 11/24/18 [History] Past Medical History HEENT History: Reports: Impaired Vision Cardiovascular History: Reports: Heart Murmur, Hypertension, Other (See Below) Other Cardiovascular History: mitral regurgitation Musculoskeletal History: Reports: Back Pain, Chronic, Neck Pain, Chronic, Other (See Below) Other Musculoskeletal History: cervical spondylosis, bulging discs plus. L5-S1 fusion. Recent MRI of neck 07/09/18 wears a back brace Neurological History: Reports: Concussion Dermatologic History: Reports: Eczema - Infectious Disease History Infectious Disease History: Reports: Chicken Pox - Past Surgical History GI Surgical History: Reports: Bariatric Procedure, Other (See Below) Other GI Surgeries/Procedures: lap band procedure 2008 Neurological Surgical History: Reports: C-Spine, Spinal Fusion, Other (See Below ) Other Neurological Surgeries/Procedures: Fusion L5-S1 Social & Family History - Tobacco Use Smoking Status *Q: Former Smoker Used Tobacco, but Quit: Yes Month/Year Tobacco Last Used: 2000 - Caffeine Use Caffeine Use: Reports: Coffee - Recreational Drug Use Recreational Drug Use: No ED ROS GENERAL - Review of Systems Review Of Systems: See Below Constitutional: Denies: Fever, Fatigue Respiratory: Denies: Shortness of Breath, Wheezing Cardiovascular: Denies: Chest Pain ED EXAM, GENERAL - Physical Exam Exam: See Below Exam Limited By: No Limitations General Appearance: Alert, WD/WN, Mild Distress Head: Atraumatic, Normocephalic Neck: Supple, Tender Lateral, Other (paraspinal bilateral muscle tenderness posterior, ROM limited by pain). No: Lymphadenopathy (R), Lymphadenopathy (L), Tender Midline Respiratory/Chest: No Respiratory Distress, Lungs Clear, Normal Breath Sounds, No Accessory Muscle Use, Chest Non-Tender. No: Crackles, Rhonchi, Wheezing Cardiovascular: Normal Peripheral Pulses, Regular Rate, Rhythm GI/Abdominal: Soft, Non-Tender Course - Vital Signs Last Recorded V/S: Last Vital Signs Temp 36.2 C 12/16/18 19:59 Pulse 91 12/16/18 19:59 Resp 16 12/16/18 19:59 BP 153/111 H 12/16/18 20:05 Pulse Ox 96 12/16/18 19:59 - Orders/Labs/Meds Meds: Medications Discontinued Medications Generic Name Dose Route Start Last Admin Trade Name Freq PRN Reason Stop Dose Admin Cyclobenzaprine HCl 10 mg 12/16/18 20:59 12/16/18 21:06 Flexeril PO 12/16/18 21:00 10 mg ONETIME ONE Administration Hydromorphone HCl 1 mg 12/16/18 21:42 12/16/18 21:51 Dilaudid IM 12/16/18 21:43 1 mg ONETIME ONE Administration Ketorolac Tromethamine 60 mg 12/16/18 20:59 12/16/18 21:06 Toradol IM 12/16/18 21:00 60 mg ONETIME ONE Administration Oxycodone/Acetaminophen 2 tab 12/16/18 20:59 12/16/18 21:05 Percocet 325-5 Mg PO 12/16/18 21:00 2 tab ONETIME ONE Administration - Re-Assessments/Exams Free Text/Narrative Re-Assessment/Exam: 12/18/18 11:46 no immediate relief from oral medications and IM NSAID he did gain some relief from IM hydromorphone and DCed home with refills of percocet and cyclobenziprine Departure - Departure Time of Disposition: 21:24 Disposition: Home, Self-Care 01 Condition: Good Clinical Impression: Cervical disc disease, Cervicalgia - Discharge Information *PRESCRIPTION DRUG MONITORING PROGRAM REVIEWED*: Yes *COPY OF PRESCRIPTION DRUG MONITORING REPORT IN PATIENT LONI: Not Applicable Instructions: Cervical Strain and Sprain Rehab-SportsMed Referrals: Sabas Carlisle MD [Primary Care Provider] - Forms: ED Department Discharge Additional Instructions: cyclobenzaprine 10 mg as needed up to 3 times daily percocet as needed for severe pain rest continue with physical therapy and current treatment plan
[2018-12-16] MEDS ORDERED: HYDROmorphone 1 MG/ML Syringe IM ONE (21:42)
== END 2018-12-16 22:08 | disposition home or self-care (01) ==
LOC: JP.ED 18:35
DX: M50.90 Cervical disc disorder, unspecified, unspecified cervical region (principal); I10 Essential (primary) hypertension; Z87.891 Personal history of nicotine dependence; Z88.8 Allergy status to other drugs, medicaments and biological substances; Z79.899 Other long term (current) drug therapy
CPT/HCPCS: 96372; 99283; A9270; J1170; J1885

== ENCOUNTER 2019-01-16 23:36 | Emergency (ER) | payer MEDICAID ==
[2019-01-17] MEDS ORDERED: HYDROmorphone 1 MG/ML Syringe IM ONE (00:01)
--- NOTE | 2019-01-17 00:09 | EDM.PDOC ---
ED HPI GENERAL MEDICAL PROBLEM - General Chief Complaint: Neck Problem Stated Complaint: NECK HURTS NOT AN ACCIDENT Time Seen by Provider: 01/16/19 23:45 Source of Information: Reports: Patient History Limitations: Reports: No Limitations - History of Present Illness INITIAL COMMENTS - FREE TEXT/NARRATIVE: 48-year-old male with chronic neck pain, rolled over and reached out with his arm while in bed trying to relieve his pain and developed a very sharp increase in neuropathic pain from his neck into his upper right arm. It's calming down slightly but he still can move his neck and has some intermittent numbness in his hands. This is a chronic recurring problem for him which we see him for fairly frequently in the emergency room, this is his 11th visit in the last 5 months. He is getting physical therapy, tried gabapentin earlier this year and is going to call his neurosurgeon tomorrow. Onset: Sudden Duration: Hour(s): (Increase in pain has been for the last 2 hours) Location: Reports: Neck, Upper Extremity, Right Associated Symptoms: Reports: No Other Symptoms neck Pain Score (Numeric/FACES): 7 - Related Data Allergies Allergy/AdvReac Type Severity Reaction Status Date / Time hydrochlorothiazide Allergy Rash Verified 01/16/19 23:44 prochlorperazine Allergy Agitation Verified 01/16/19 23:44 [From Compazine] Home Meds: Home Meds Lisinopril 40 mg PO DAILY 06/20/18 [History] Carvedilol 12.5 mg PO BID 07/09/18 [History] Cbd Oil 8 drop TOP ASDIRECTED PRN 07/14/18 [History] Acetaminophen [Tylenol] 650 mg PO BID PRN 10/03/18 [History] Ibuprofen [Motrin] 400 mg PO TID PRN 10/03/18 [History] Cholecalciferol (Vitamin D3) [Vitamin D3] 5,000 units PO DAILY 11/24/18 [History ] Testosterone [Androderm 4 MG/Day] 4 mg TOP DAILY 11/24/18 [History] Past Medical History HEENT History: Reports: Impaired Vision Cardiovascular History: Reports: Heart Murmur, Hypertension, Other (See Below) Other Cardiovascular History: mitral regurgitation Musculoskeletal History: Reports: Back Pain, Chronic, Neck Pain, Chronic, Other (See Below) Other Musculoskeletal History: cervical spondylosis, bulging discs plus. L5-S1 fusion. Recent MRI of neck 07/09/18 wears a back brace Neurological History: Reports: Concussion Dermatologic History: Reports: Eczema - Infectious Disease History Infectious Disease History: Reports: Chicken Pox - Past Surgical History GI Surgical History: Reports: Bariatric Procedure, Other (See Below) Other GI Surgeries/Procedures: lap band procedure 2008 Neurological Surgical History: Reports: C-Spine, Spinal Fusion, Other (See Below ) Other Neurological Surgeries/Procedures: Fusion L5-S1 Social & Family History - Tobacco Use Smoking Status *Q: Former Smoker Used Tobacco, but Quit: Yes Month/Year Tobacco Last Used: 2000 - Caffeine Use Caffeine Use: Reports: Coffee - Recreational Drug Use Recreational Drug Use: No ED ROS GENERAL - Review of Systems Review Of Systems: See Below Constitutional: Denies: Fever, Chills HEENT: Denies: Vision Change Respiratory: Denies: Shortness of Breath Cardiovascular: Denies: Chest Pain GI/Abdominal: Denies: Abdominal Pain Neurological: Reports: Paresthesia (Intermittent paresthesias of his hands). Denies: Headache ED EXAM, UPPER BACK/NECK PAIN - Physical Exam Exam: See Below Exam Limited By: No Limitations General Appearance: Alert, Mild Distress (Looks fairly uncomfortable tonight, more than usual. He will not rotate his head) Head Exam: Atraumatic Neck Exam: Paraspinous Muscle Tender (Especially on the right) Neurologic: No Motor/Sensory Deficits Course - Vital Signs Last Recorded V/S: Last Vital Signs Temp 98.4 F 01/16/19 23:53 Pulse 88 01/16/19 23:53 Resp 18 01/16/19 23:53 BP 176/113 H 01/16/19 23:53 Pulse Ox 95 01/16/19 23:53 - Orders/Labs/Meds Meds: Medications Discontinued Medications Generic Name Dose Route Start Last Admin Trade Name Freq PRN Reason Stop Dose Admin Hydromorphone HCl 1 mg 01/17/19 00:01 01/17/19 00:10 Dilaudid IM 01/17/19 00:02 1 mg ONETIME ONE Administration - Re-Assessments/Exams Free Text/Narrative Re-Assessment/Exam: 01/17/19 00:06 I had a long discussion with the patient about the importance of taking care of this as an outpatient basis either with neurosurgery or his primary provider. He is going to call his neurosurgeon tomorrow. It's been 6 months of physical therapy and other modalities and he is not improving. He was given 1 mg of IM Dilaudid and 10 Percocet to use sparingly for breakthrough pain. A [employer]IDENT [employer] search shows he is using between 10 and 15 narcotic pills monthly which is not overly concerning. I am more concerned with him having these ongoing recurring symptoms without any definitive treatment. Departure - Departure Time of Disposition: 00:12 Disposition: Home, Self-Care 01 Clinical Impression: Cervical radiculopathy - Discharge Information Instructions: Neuropathic Pain Referrals: Sabas Carlisle MD [Primary Care Provider] - Forms: ED Department Discharge Care Plan Goals: Use anti-inflammatories if possible, and add Percocet for breakthrough pain. It is very important to get this taken care of through your neurosurgeon so call him as soon as possible. I also think another try through your primary provider of gabapentin would be worthwhile.
== END 2019-01-17 00:16 | disposition home or self-care (01) ==
LOC: JP.ED 23:36
DX: M54.12 Radiculopathy, cervical region (principal); Z87.891 Personal history of nicotine dependence
CPT/HCPCS: 96372; 99283; J1170

== ENCOUNTER 2019-06-07 18:10 | Emergency (ER) | payer MEDICAID ==
--- NOTE | 2019-06-07 18:53 | EDM.PDOC ---
ED HPI GENERAL MEDICAL PROBLEM - General Chief Complaint: Back Pain or Injury Stated Complaint: HAD NECK SURGERY/FELL DOWN STAIRS,REINJURED Time Seen by Provider: 06/07/19 18:35 Source of Information: Reports: Patient, Old Records, RN History Limitations: Reports: No Limitations - History of Present Illness INITIAL COMMENTS - FREE TEXT/NARRATIVE: 48 yo male here 2 days after falling on some stairs. Had recent neck surgery for fusions and is wearing a neck and back brace. Has a past hx also of lumbar spin surgery. Since his fall has some pain down the L arm and down the L leg which is new. Called his surgeon in the [facility] today about his fall and sx' s and was told to go to the ER. 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: Other (see below) (none) Back Pain Score (Numeric/FACES): 7 - Related Data Allergies Allergy/AdvReac Type Severity Reaction Status Date / Time hydrochlorothiazide Allergy Rash Verified 01/16/19 23:44 prochlorperazine Allergy Agitation Verified 01/16/19 23:44 [From Compazine] Home Meds: Home Meds Lisinopril 40 mg PO DAILY 06/20/18 [History] carvediloL [Carvedilol] 12.5 mg PO BID 07/09/18 [History] Cbd Oil 8 drop TOP ASDIRECTED PRN 07/14/18 [History] Acetaminophen [Tylenol] 650 mg PO BID PRN 10/03/18 [History] Ibuprofen [Motrin] 400 mg PO TID PRN 10/03/18 [History] Cholecalciferol (Vitamin D3) [Vitamin D3] 5,000 units PO DAILY 11/24/18 [History ] Testosterone [Androderm 4 MG/Day] 4 mg TOP DAILY 11/24/18 [History] methocarbamoL [Methocarbamol] 750 - 1,500 mg PO TID PRN #20 tablet 06/07/19 [Rx] Past Medical History HEENT History: Reports: Impaired Vision Cardiovascular History: Reports: Heart Murmur, Hypertension, Other (See Below) Other Cardiovascular History: mitral regurgitation Musculoskeletal History: Reports: Back Pain, Chronic, Neck Pain, Chronic, Other (See Below) Other Musculoskeletal History: cervical spondylosis, bulging discs plus. L5-S1 fusion. Recent MRI of neck 07/09/18 wears a back brace Neurological History: Reports: Concussion Dermatologic History: Reports: Eczema - Infectious Disease History Infectious Disease History: Reports: Chicken Pox - Past Surgical History GI Surgical History: Reports: Bariatric Procedure, Other (See Below) Other GI Surgeries/Procedures: lap band procedure 2008 Neurological Surgical History: Reports: C-Spine, Spinal Fusion, Other (See Below ) Other Neurological Surgeries/Procedures: Fusion L5-S1 Social & Family History - Tobacco Use Smoking Status *Q: Never Smoker - Caffeine Use Caffeine Use: Reports: Coffee - Recreational Drug Use Recreational Drug Use: No ED ROS GENERAL - Review of Systems Review Of Systems: See Below Constitutional: Reports: No Symptoms HEENT: Reports: No Symptoms Respiratory: Reports: No Symptoms Cardiovascular: Reports: No Symptoms GI/Abdominal: Reports: No Symptoms Musculoskeletal: Reports: Back Pain (low) Skin: Reports: No Symptoms Neurological: Reports: Tingling (L arm and L leg intermittently) Psychiatric: Reports: No Symptoms ED EXAM, UPPER BACK/NECK PAIN - Physical Exam Exam: See Below Exam Limited By: No Limitations General Appearance: Alert, WD/WN, No Apparent Distress, Obese Eye Exam: Bilateral Eye: Normal Inspection Ears Exam: Normal External Exam, Normal Canal, Hearing Grossly Normal Nose Exam: Normal Inspection, No Blood Throat/Mouth Exam: Normal Inspection, Normal Lips, Normal Oropharynx, Normal Voice, No Airway Compromise Head Exam: Atraumatic, Normocephalic Neck Exam: Other (Is wearing a hard cervical collar and a back brace currently.) Extremities: Normal Inspection, Normal Range of Motion, Non-Tender, No Pedal Edema Neurologic: No Motor/Sensory Deficits, Alert, Normal Mood/Affect, Oriented x 3 Psychiatric: Normal Affect, Normal Mood Skin Exam: Normal Color, Warm/Dry Course - Vital Signs Last Recorded V/S: Last Vital Signs Temp 36.7 C 06/07/19 18:25 Pulse 96 06/07/19 18:25 Resp BP 167/110 H 06/07/19 18:25 Pulse Ox - Radiology Interpretation Free Text/Narrative:: CT cervical spine-nothing acute CT lumbar spine-nothing acute CT Results Date: 06/07/19 Departure - Departure Time of Disposition: 19:56 Disposition: Home, Self-Care 01 Condition: Fair Clinical Impression: Neck pain Low back pain Qualifiers: Chronicity: acute Back pain laterality: left Sciatica presence: with sciatica Sciatica laterality: sciatica of left side Qualified Code(s): M54.42 - Lumbago with sciatica, left side - Discharge Information *PRESCRIPTION DRUG MONITORING PROGRAM REVIEWED*: No *COPY OF PRESCRIPTION DRUG MONITORING REPORT IN PATIENT LONI: No Prescriptions: methocarbamoL [Methocarbamol] 750 - 1,500 mg PO TID PRN #20 tablet PRN Reason: Muscle Spasm Instructions: Acute Back Pain, Adult Referrals: PCP,None [Primary Care Provider] - Forms: ED Department Discharge Additional Instructions: Use the Percocet and methocarbimol as directed for pain relief. Share your CT results with your provider. Recheck with either your surgeon or family doctor as needed for further care. Sepsis Event Note - Evaluation Sepsis Screening Result: No Definite Risk - Focused Exam Vital Signs: Vital Signs Temp Pulse BP 06/07/19 18:25 36.7 C 96 167/110 H Date Exam was Performed: 06/07/19 Time Exam was Performed: 19:56
--- NOTE | 2019-06-07 19:35 | CRLCT ---
INDICATION: fall 2 days ago pain and neuro changes Cervical surgery last February CT CERVICAL SPINE WITHOUT CONTRAST TECHNIQUE: Multidetector axial CT imaging was performed through the cervical spine, without contrast. Sagittal and coronal reconstructions were generated. Comparison: None. FINDINGS: There is straightening of cervical lordosis, possibly reflecting muscle spasm. No acute fractures are identified. There are postoperative changes of anterior fusion at the C5 through C7 levels. An anterior metallic fusion plate affixed by screws to the C5, C6, and C7 vertebral bodies appears intact. A bone graft cage is noted within the C6-7 disc space. Osseous alignment is within normal limits and no subluxation is seen. Prevertebral soft tissues are unremarkable. Included portions of the airway and lung apices are within normal limits. IMPRESSION: 1. Straightened lordosis, possibly due to muscle spasm. No fracture, subluxation, or other acute finding identified. 2. Postoperative changes of anterior cervical fusion from C5 to C7, noted above. TERE SOSA MD [employer] Dictated by Grzegorz Sosa MD @ 06/07/2019 7:33:56 PM Dictated by: Grzegorz Sosa MD @ 06/07/2019 19:35:29 (Electronically Signed)
--- NOTE | 2019-06-07 19:38 | CRLCT ---
INDICATION: fall 2 days ago pain and neuro changes hx lumbar surgery [address] LUMBAR SPINE WITHOUT CONTRAST TECHNIQUE: Multidetector axial CT imaging was performed through the lumbar spine, without contrast. Sagittal and coronal reconstructions were generated. FINDINGS: No acute fractures are identified. There are mature postoperative changes of fusion at L5-S1 with bone grafting in the L5-S1 disc space posterior fixation hardware and posterior bone grafting. Disc spaces elsewhere appear preserved. Osseous alignment is within normal limits and no subluxation is seen. Paravertebral soft tissues are unremarkable. IMPRESSION: 1. No fracture, subluxation, or other acute finding identified. 2. Status post fusion L5-S1. TERE SOSA MD [employer] [facility] Dictated by Grzegorz Sosa MD @ 06/07/2019 7:36:53 PM Dictated by: Grzegorz Sosa MD @ 06/07/2019 19:37:13 (Electronically Signed)
== END 2019-06-07 20:21 | disposition home or self-care (01) ==
LOC: JP.ED 18:10 → EEVIPCON 18:10 → JP.ED 20:21
DX: M54.42 Lumbago with sciatica, left side (principal); M54.2 Cervicalgia; I10 Essential (primary) hypertension; Z79.899 Other long term (current) drug therapy; Z88.8 Allergy status to other drugs, medicaments and biological substances
CPT/HCPCS: 72125; 72131; 99283; 99283-25

== ENCOUNTER 2019-08-21 16:11 | Emergency (ER) | payer MEDICAID ==
--- NOTE | 2019-08-21 17:41 | EDM.PDOC ---
ED HPI GENERAL MEDICAL PROBLEM - General Chief Complaint: Back Pain or Injury Stated Complaint: LOW BACK - LEFT FOOT NUMBNESS Time Seen by Provider: 08/21/19 17:02 Source of Information: Reports: Patient - History of Present Illness INITIAL COMMENTS - FREE TEXT/NARRATIVE: 49 y/o male with a history of chronic pain in his low back has increased pain for one week after heavy lifting. He has no new neuro symptoms or red flag symptoms. He has a chronic foot drop/drag on the left and has new numbness of the lateral three toes of the left foot. He has no bowel or bladder function problems and no saddle paresthesias. He take methocarbamol regularly for pain, as well as Toradol. He got a Rx of steroids from his pcp in the past week. He has no fever or chills. Back Pain Score (Numeric/FACES): 8 - Related Data Allergies Allergy/AdvReac Type Severity Reaction Status Date / Time hydrochlorothiazide Allergy Rash Verified 08/21/19 17:07 prochlorperazine Allergy Agitation Verified 08/21/19 17:07 [From Compazine] Home Meds: Home Meds Lisinopril 40 mg PO DAILY 06/20/18 [History] carvediloL [Carvedilol] 12.5 mg PO BID 07/09/18 [History] Acetaminophen [Tylenol] 650 mg PO BID PRN 10/03/18 [History] Cholecalciferol (Vitamin D3) [Vitamin D3] 5,000 units PO DAILY 11/24/18 [History ] methocarbamoL [Methocarbamol] 750 - 1,500 mg PO TID PRN #20 tablet 06/07/19 [Rx] Ketorolac [Toradol] 10 mg PO Q6H 08/21/19 [History] Testosterone Cypionate 1 ml IM ASDIRECTED 08/21/19 [History] Past Medical History HEENT History: Reports: Impaired Vision Cardiovascular History: Reports: Heart Murmur, Hypertension, Other (See Below) Other Cardiovascular History: mitral regurgitation Genitourinary History: Reports: Renal Calculus Musculoskeletal History: Reports: Back Pain, Chronic, Neck Pain, Chronic, Other (See Below) Other Musculoskeletal History: cervical spondylosis, bulging discs plus. L5-S1 fusion, cervical fusion. Neurological History: Reports: Concussion Dermatologic History: Reports: Eczema - Infectious Disease History Infectious Disease History: Reports: Chicken Pox - Past Surgical History GI Surgical History: Reports: Bariatric Procedure, Other (See Below) Other GI Surgeries/Procedures: lap band procedure 2009 Male Surgical History: Reports: Kidney Stone Extraction Neurological Surgical History: Reports: C-Spine, Discectomy, Spinal Fusion, Other (See Below) Other Neurological Surgeries/Procedures: Fusion L5-S1 Social & Family History - Tobacco Use Smoking Status *Q: Never Smoker - Caffeine Use Caffeine Use: Reports: Coffee - Recreational Drug Use Recreational Drug Use: No ED ROS GENERAL - Review of Systems Review Of Systems: See Below Constitutional: Reports: No Symptoms GI/Abdominal: Reports: No Symptoms. Denies: Nausea, Vomiting Musculoskeletal: Reports: Back Pain Skin: Denies: Rash Neurological: Reports: Numbness ED EXAM, UPPER BACK/NECK PAIN - Physical Exam Exam: See Below Exam Limited By: No Limitations General Appearance: Alert, WD/WN, Mild Distress Neurologic: Other (He has normal strength in the proximal and distal muscles. His reflexes are symmetric. ) Course - Vital Signs Text/Narrative:: He has recurrent back pain after doing heavy work at home. He has a history of neck and back problems. His exam is non acute. He has good strength and symmetric reflexes. He has no red flag symptoms such as bowel or bladder dysfunction or saddle paresthesias. He will continue his OTC analgesics and has PT scheduled for later this week. He wants a narcotic for pain, but I don' t believe its indicated at this stage. I offered Toradol IM but he refused. He is not happy about not getting narcotics for pain, but I tried to discuss my thoughts with him which was not satisfactory to him. The [facility] database was reviewed and he has received narcotics from various providers. He should get his controlled substances from one provider and one pharmacy. He was discharged home in stable condition. Last Recorded V/S: Last Vital Signs Temp 36.0 C L 08/21/19 17:27 Pulse 78 08/21/19 17:27 Resp 18 08/21/19 17:27 BP 153/75 H 08/21/19 17:27 Pulse Ox 96 08/21/19 17:27 Departure - Departure Time of Disposition: 17:45 Disposition: Home, Self-Care 01 Condition: Good Clinical Impression: Low back pain Qualifiers: Chronicity: acute Back pain laterality: left Sciatica presence: with sciatica Sciatica laterality: sciatica of left side Qualified Code(s): M54.42 - Lumbago with sciatica, left side - Discharge Information *PRESCRIPTION DRUG MONITORING PROGRAM REVIEWED*: No Referrals: Leigha Mcknight MD [Primary Care Provider] - Forms: ED Department Discharge Additional Instructions: Take your usual medications. Follow up with your primary care provider. Return to the ER as needed. Sepsis Event Note (ED) - Focused Exam Vital Signs: Vital Signs Temp Pulse Resp BP Pulse Ox 08/21/19 17:27 36.0 C L 78 18 153/75 H 96
== END 2019-08-21 18:50 | disposition home or self-care (01) ==
LOC: JP.ED 16:11
DX: M54.42 Lumbago with sciatica, left side (principal); I10 Essential (primary) hypertension; Z88.8 Allergy status to other drugs, medicaments and biological substances; Z79.899 Other long term (current) drug therapy
CPT/HCPCS: 99283

== ENCOUNTER 2020-03-04 13:58 | Emergency (ER) | payer OTHER, MEDICAID ==
[2020-03-04] MEDS ORDERED: Acetaminophen/oxyCODONE 325-5 MG Tab PO STA (15:19)
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
== END 2020-03-04 15:40 | disposition home or self-care (01) ==
LOC: JP.ED 13:58
DX: M54.2 Cervicalgia (principal); I10 Essential (primary) hypertension; E66.9 Obesity, unspecified; Z87.891 Personal history of nicotine dependence; Z79.899 Other long term (current) drug therapy; Z88.2 Allergy status to sulfonamides; Z88.6 Allergy status to analgesic agent; Z68.41 Body mass index [BMI] 40.0-44.9, adult
CPT/HCPCS: 99283; A9270

== ENCOUNTER 2020-04-10 15:44 | Emergency (ER) | payer MEDICAID, OTHER ==
[2020-04-10] MEDS ORDERED: Acetaminophen/oxyCODONE 325-5 MG Tab PO STA (17:11)
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
== END 2020-04-10 17:22 | disposition home or self-care (01) ==
LOC: JP.ED 15:44
DX: G89.29 Other chronic pain (principal); M54.2 Cervicalgia; I10 Essential (primary) hypertension; E66.9 Obesity, unspecified; Z68.41 Body mass index [BMI] 40.0-44.9, adult; Z87.891 Personal history of nicotine dependence; Z88.8 Allergy status to other drugs, medicaments and biological substances; Z79.899 Other long term (current) drug therapy
CPT/HCPCS: 99283; A9270

== ENCOUNTER 2020-04-24 10:41 | Emergency (ER) | payer OTHER, MEDICAID ==
[2020-04-24] MEDS ORDERED: Ketorolac 60 MG/2 ML SDV IM ONE (11:19)
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
== END 2020-04-24 11:32 | disposition home or self-care (01) ==
LOC: JP.ED 10:41
DX: M54.16 Radiculopathy, lumbar region (principal); I10 Essential (primary) hypertension; E66.9 Obesity, unspecified; Z68.39 Body mass index [BMI] 39.0-39.9, adult; Z87.891 Personal history of nicotine dependence; Z88.8 Allergy status to other drugs, medicaments and biological substances; Z79.899 Other long term (current) drug therapy
CPT/HCPCS: 96372; 99283; J1885

== ENCOUNTER 2021-05-28 11:42 | Emergency (ER) | payer MEDICAID ==
[2021-05-28] MEDS ORDERED: HYDROmorphone 1 MG/ML Syringe IVPUSH ONE ×2 (12:16→15:04)
[2021-05-28] MEDS ORDERED: LORazepam 2 MG/ML SDV IVPUSH ONE (13:21)
[2021-05-28] MEDS ORDERED: fentaNYL 100 MCG/2 ML SDV IVPUSH ONE (13:52)
[2021-05-28] MEDS ORDERED: Diazepam 2 MG Tab PO ONE ×2 (15:05→15:12)
[2021-05-28] MEDS ORDERED: Diazepam 5 MG Tab PO ONE (15:30)
== END 2021-05-28 15:46 | disposition home or self-care (01) ==
LOC: JP.ED 11:42
DX: M54.16 Radiculopathy, lumbar region (principal); E66.9 Obesity, unspecified; Z68.38 Body mass index [BMI] 38.0-38.9, adult; Z91.030 Bee allergy status; Z88.8 Allergy status to other drugs, medicaments and biological substances; Z91.018 Allergy to other foods; Z79.899 Other long term (current) drug therapy; Z87.891 Personal history of nicotine dependence
CPT/HCPCS: 96374; 96375; 96376; 99282; 99284-25; A9270-GY; J1170; J2060; J3010

== ENCOUNTER 2021-12-15 19:10 | Emergency (ER) | payer MEDICAID ==
[2021-12-15] MEDS ORDERED: oxyCODONE 5 MG Tab ONE (20:50)
== END 2021-12-15 22:06 | disposition home or self-care (01) ==
LOC: JP.ED 19:10
DX: S39.012A Strain of muscle, fascia and tendon of lower back, initial encounter (principal); S29.012A Strain of muscle and tendon of back wall of thorax, initial encounter
CPT/HCPCS: 72070; 72100; 99283; A9270

== ENCOUNTER 2022-03-16 15:29 | Emergency (ER) | payer MEDICAID | END 2022-03-16 17:36 | disposition home or self-care (01) | LOC: JP.ED 15:29 | DX: M54.50 Low back pain, unspecified (principal); I10 Essential (primary) hypertension; E66.9 Obesity, unspecified; Z68.34 Body mass index [BMI] 34.0-34.9, adult; Z91.030 Bee allergy status; Z88.8 Allergy status to other drugs, medicaments and biological substances; Z91.048 Other nonmedicinal substance allergy status; Z79.899 Other long term (current) drug therapy; Z87.891 Personal history of nicotine dependence | CPT/HCPCS: 99283 ==

== ENCOUNTER 2023-07-21 18:09 | Emergency (ER) | payer MEDICAID | END 2023-07-21 19:14 | disposition home or self-care (01) | LOC: JP.ED 18:09 | DX: T81.49XA Infection following a procedure, other surgical site, initial encounter (principal); I10 Essential (primary) hypertension; E66.9 Obesity, unspecified; Z91.030 Bee allergy status; Z91.018 Allergy to other foods; Z88.8 Allergy status to other drugs, medicaments and biological substances; Z79.899 Other long term (current) drug therapy; Z86.16 Personal history of COVID-19; Z68.39 Body mass index [BMI] 39.0-39.9, adult | CPT/HCPCS: 99283 ==

== ENCOUNTER 2024-04-02 01:35 | Emergency (ER) | payer MEDICAID ==
[2024-04-02] MEDS: Albuterol/Ipratropium 3.0-0.5 MG/3 ML Neb Soln NEB ONE (02:01)
[2024-04-02] MEDS ORDERED: Sodium Chloride 0.9% 10 ML Syringe FLUSH PRN (02:11)
[2024-04-02 02:19] LABS: BASOPHILS ABSOLUTE AUTO 0.05 K/uL (0.00-0.10); BASOPHILS PERCENT AUTO 0.6 % (0.1-1.3); EOSINOPHILS ABSOLUTE AUTO 0.16 K/uL (0.00-0.40); HEMATOCRIT 47.9 % (38.4-49.7); HEMOGLOBIN 16.1 g/dL (12.9-16.9); IMMATURE GRAN ABSOLUTE AUTO 0.02 K/uL (0.00-0.23); IMMATURE GRAN PERCENT AUTO 0.2 % (0.0-0.7); LYMPHOCYTES ABSOLUTE AUTO 0.67 K/uL (0.8-3.3); LYMPHOCYTES PERCENT AUTO 8.2 % (11.4-47.7); MEAN CORPUSCULAR HEMOGLOBIN 27.6 pg (31.6-35.5); MEAN CORPUSCULAR HGB CONC 33.6 g/dL (31.6-35.5); MONOCYTES ABSOLUTE AUTO 1.36 K/uL (0.20-0.90); MONOCYTES PERCENT AUTO 16.7 % (3.3-12.6); NEUTROPHILS ABSOLUTE AUTO 5.89 K/uL (1.0-7.6); NEUTROPHILS PERCENT AUTO 72.3 % (40.0-78.1); PLATELET COUNT,PLT 185 K/uL (130-375); RED BLOOD CELL COUNT 5.84 M/uL (4.14-5.76); WHITE BLOOD CELL COUNT,WBC 8.2 K/uL (3.2-11.0)
[2024-04-02 02:47] LABS: ALANINE AMINOTRANSFERASE,ALT 66 U/L (12-78); ALBUMIN 3.6 g/dL (3.4-5.0); ALKALINE PHOSPHATASE 61 U/L (46-116); BILIRUBIN TOTAL 0.3 mg/dL (0.2-1.0); BLOOD UREA NITROGEN,BUN 16 mg/dL (7-18); CALCIUM 8.7 mg/dL (8.5-10.1); CARBON DIOXIDE,CO2 25 mmol/L (21-32); CHLORIDE,CL 103 mmol/L (100-108); CREATININE 1.2 mg/dL (0.8-1.3); EST CRCL DRUG DOSING (CG) 72.83 mL/min; ESTIMATED GFR 73 mL/min (>60); GLUCOSE RANDOM 101 mg/dL (74-106); POTASSIUM,K 4.2 mmol/L (3.6-5.2); PRO B-TYPE NATRIUR PEPT,BNPPRO 200 pg/mL (5-125); PROTEIN TOTAL,TP 7.4 g/dL (6.4-8.2); SODIUM,NA 138 mmol/L (140-148); TROPONIN I HIGH SENSITIVITY 51.4 pg/mL (<=60.3)
[2024-04-02 02:48] LABS: ANION GAP 14.2 mmol/L (5.0-14.0); ASPARTATE AMNIOTRANSFERASE,AST 41 U/L (15-37)
== END 2024-04-02 03:29 | disposition home or self-care (01) ==
LOC: JP.ED 01:35
DX: J06.9 Acute upper respiratory infection, unspecified (principal); I10 Essential (primary) hypertension; E66.9 Obesity, unspecified; R06.9 Unspecified abnormalities of breathing; Z68.41 Body mass index [BMI] 40.0-44.9, adult; Z95.2 Presence of prosthetic heart valve; Z98.84 Bariatric surgery status; Z88.8 Allergy status to other drugs, medicaments and biological substances; Z91.018 Allergy to other foods; Z91.030 Bee allergy status; Z79.51 Long term (current) use of inhaled steroids; Z79.899 Other long term (current) drug therapy
CPT/HCPCS: 36415; 71046; 71046-26; 80053; 83880; 84484; 85025; 87428-QW; 93005; 94640; 99285; J7620